=== PATIENT | male | born 2000 | race Caucasian/White ===

== ENCOUNTER 2024-06-25 16:00 | Emergency (ER) | payer BC, SELFPAY ==
[2024-06-25 16:14] VITALS: BP 139/91; PULSE 102; RESP 18; TEMP 36.2; O2SAT 98; BMI 25.8
--- NOTE | 2024-06-25 16:37 | ED.GENADULT ---
HPI - General Adult General Date Seen: 06/25/24 Chief complaint: Cough Stated complaint: covid testing Time Seen by Provider: 06/25/24 16:00 Source: patient Mode of arrival: ambulatory Limitations: no limitations History of Present Illness HPI narrative: Patient is a 24-year-old male presenting to the emergency department for concern for COVID. States his significant other recently tested positive for COVID. He took it COVID test that was inconclusive he states. At home he has been having headaches and body aches. Is not having any chest pains or shortness of breath. Has some mild weakness but denies vision changes or numbness. And is not having any abdominal pain, diarrhea, constipation, dysuria, nausea or vomiting. No other concerns noted at this time Related Data Home Medications ?Medication ?Instructions ?Recorded ?Confirmed No Known Home Medications 06/25/24 06/25/24 Allergies Allergy/AdvReac Type Severity Reaction Status Date / Time No Known Drug Allergies Allergy Verified 06/25/24 16:16 Review of Systems Status of ROS: Reports: 10 or more systems reviewed and unremarkable except as noted in History and below PFSH PFS Social History Smoking Status: Never smoker Do you use any of these nicotine containing products: None How often do you have a drink containing alcohol: never AUDIT-C Alcohol total score: 0 service: No Exam Narrative: Exam Narrative: Const: Well-nourished, Well-developed, in no distress Eyes: PERRL, no conjunctival injection, and symmetrical lids HENT: Atraumatic external nose and ears. Moist mucous membranes. Neck: Symmetric, trachea midline, No thyromegaly. CVS: RRR, No murmurs or gallops. Peripheral pulses 2+ and equal in all extremities RESP: Unlabored respiratory effort. Clear to auscultation bilaterally. GI: Nontender/Nondistended, No rebound or guarding. MSK:Extremities w/o deformity, Normal Active ROM Skin: Warm, Dry. No rashes or lesions. Neuro: Normal Muscle tone, No focal neurological deficits. Psych: Awake, Alert, & Oriented x3. Appropriate mood and affect. Const: Vital Signs, click to edit/add: Vital Signs - 24 hr 06/25/24 16:14 Temperature 97.2 F L Pulse Rate [Pulse Oximeter] 102 H Respiratory Rate 18 Blood Pressure [Le ft Upper Arm] 139/91 H Pulse Oximetry 98 Oxygen Delivery Me thod Room Air Course Vital Signs Vital signs: Initial Vital Signs Temperature 97.2 F L 06/25/24 16:14 Temperature Source Temporal Artery Scan 06/25/24 16:14 Pulse Rate 102 H 06/25/24 16:14 Pulse Rhythm Regular 06/25/24 16:14 Respiratory Rate 18 06/25/24 16:14 Blood Pressure 139/91 H 06/25/24 16:14 Blood Pressure Mean 107 H 06/25/24 16:14 Blood Pressure Position Sitting 06/25/24 16:14 Pulse Oximetry 98 06/25/24 16:14 Oxygen Delivery Method Room Air 06/25/24 16:14 Vital Signs Temperature 97.2 F L 06/25/24 16:14 Pulse Rate 102 H 06/25/24 16:14 Respiratory Rate 18 06/25/24 16:14 Blood Pressure 139/91 H 06/25/24 16:14 Pulse Oximetry 98 06/25/24 16:14 Oxygen Delivery Method Room Air 06/25/24 16:14 Temperature 97.2 F L 06/25/24 16:14 Pulse Rate 102 H 06/25/24 16:14 Respiratory Rate 18 06/25/24 16:14 Blood Pressure 139/91 H 06/25/24 16:14 Pulse Oximetry 98 06/25/24 16:14 Oxygen Delivery Method Room Air 06/25/24 16:14 Medical Decision Making MDM Narrative Medical decision making narrative: Patient is a 24-year-old male presenting to the emergency department for concerns for COVID. He is otherwise doing well a not believe lab work or imaging is necessary at this time. Will do a COVID/flu/RSV test. Testing was negative any likely has some other viral syndrome. He will be discharged. He is agreeable with this plan Lab Data Labs: Lab Results 06/25/24 Range/Units 16:07 SARS-CoV-2 (PCR) Negative SARS-CoV-2 (Negative) Influenza Type A (PCR) Negative PCR FLU A (Negative) Influenza Type B (PCR) Negative PCR FLU B (Negative) RSV (PCR) Negative PCR RSV (Negative) Discharge Plan Discharge Clinical Impression: Acute viral syndrome Patient Disposition: Home, Self-Care Condition: Stable Instructions: Viral Syndrome (ED) Additional Instructions: Make sure stay well hydrated. Symptoms should start improving over the next week. Return for new or worsening symptoms Prescriptions: No Action No Known Home Medications Follow Up/Referrals: Provider,Not a Local [Primary Care Provider] - Stand Alone Forms: [employer] Info Instructions
[2024-06-25 17:08] LABS: PCR FLU A Negative PCR FLU A (Negative); PCR FLU B Negative PCR FLU B (Negative); PCR RSV Negative PCR RSV (Negative); SARS PCR* Negative SARS-CoV-2 (Negative)
== END 2024-06-25 17:33 | disposition home or self-care (01) ==
PROVIDERS: Emergency Provider Student in an Organized Health Care Education/Training Program
DX: B34.9 Viral infection, unspecified (principal)
CPT/HCPCS: 87631; 99282; 99283

== ENCOUNTER 2024-09-16 15:41 | Emergency (ER) | payer BC, SELFPAY ==
[2024-09-16 15:51] VITALS: BP 150/77; PULSE 74; RESP 16; TEMP 37.1; O2SAT 97; BMI 25.8
[2024-09-16 16:34] LABS: Strep A DNA Probe* NOT DETECTED (Not Detectd)
[2024-09-16 16:47] LABS: PCR FLU A Negative PCR FLU A (Negative); PCR FLU B Negative PCR FLU B (Negative); PCR RSV Negative PCR RSV (Negative); SARS PCR* Negative SARS-CoV-2 (Negative)
--- NOTE | 2024-09-16 16:51 | ED.GENADULT ---
HPI - General Adult General Time Seen by Provider: 16:51 Date Seen: 09/16/24 Chief complaint: Sore Throat Stated complaint: sore throat - difficulty swallowing Time Seen by Provider: 09/16/24 16:21 Source: patient, family, RN notes reviewed and old records reviewed Mode of arrival: ambulatory Limitations: no limitations History of Present Illness HPI narrative: John is a 24-year-old male who reports a past history of mono complicated by tonsillitis requiring antibiotics who comes to the emergency room today for a sore throat that he awoke with this morning. No contacts to his knowledge. He describes this sore throat throat that started today but there is no fever, significant cough, ear pain, runny nose. Lenora tells me that in the past he was diagnosed with a negative strep positive mono at urgent care and they just ?sent him on his way?. Four days later he was hospitalize with a very high fever and pus coming from his tonsils. He does not feel like he was treated well in that case and thus did not go to urgent care today. Primarily doctors at the [facility]. His significant other is with him in is very loving and supportive. He works at [employer]. No vomiting. Related Data Home Medications ?Medication ?Instructions ?Recorded ?Confirmed No Known Home Medications 06/25/24 06/25/24 Allergies Allergy/AdvReac Type Severity Reaction Status Date / Time No Known Drug Allergies Allergy Verified 06/25/24 16:16 Review of Systems Status of ROS: Reports: 6 or more systems reviewed and unremarkable except as noted in History and below Const: Denies: fever ENMT: Reports: throat pain; Denies: neck pain, throat swelling or nasal congestion Resp: Denies: wheezing GI: Denies: abdominal pain Musculo: Denies: neck pain Allergy/Immuno: Denies: throat swelling or wheezing PFSH PFSH Social History Smoking Status: Never smoker Do you use any of these nicotine containing products: None How often do you have a drink containing alcohol: never AUDIT-C Alcohol total score: 0 Non-prescribed substance use: denies use service: No Exam Narrative: Exam Narrative: Alert and oriented. Nontoxic in appearance. Eyes are clear. Oral cavity with moist mucous membranes. Tonsils visualized there is no exudate or erythema. No anterior cervical lymphadenopathy. Neck is supple. Left TM with only a small part visualize which is non erythematous. There is a large amount of cerumen deep within the ear canal. Right TM within normal limits. Heart with regular rate and rhythm and lungs are clear in all lung acharya. He is able to move all of his extremities. Const: Vital Signs, click to edit/add: Vital Signs - 24 hr 09/16/24 15:51 Temperature 98.7 F Pulse Rate [Pulse Oximeter] 74 Respiratory Rate 16 Blood Pressure [Ri ght Upper Arm] 150/77 H Pulse Oximetry 97 Oxygen Delivery Me thod Room Air Documenting provider has reviewed patient's vital signs: yes Course Course ED Course: Differential diagnosis includes but is not limited to viral pharyngitis, early COVID, pneumonia, influenza, RSV, strep, peritonsillar abscess. At this time based on exam there is no evidence of a peritonsillar abscess or tonsillitis at this time. Prior to seeing patient he did test negative for strep, COVID, influenza, RSV. John did have COVID but not within the last couple years. Does not get immunizations per his report. We did speak briefly about antiviral if you would be COVID positive but he does not really have any risk factors and denies asthma, tobacco use, other health issues. Vital Signs Vital signs: Initial Vital Signs Temperature 98.7 F 09/16/24 15:51 Temperature Source Temporal Artery Scan 09/16/24 15:51 Pulse Rate 74 09/16/24 15:51 Respiratory Rate 16 09/16/24 15:51 Blood Pressure 150/77 H 09/16/24 15:51 Blood Pressure Mean 101 09/16/24 15:51 Blood Pressure Position Sitting 09/16/24 15:51 Pulse Oximetry 97 09/16/24 15:51 Oxygen Delivery Method Room Air 09/16/24 15:51 Vital Signs Temperature 98.7 F 09/16/24 15:51 Pulse Rate 74 09/16/24 15:51 Respiratory Rate 16 09/16/24 15:51 Blood Pressure 150/77 H 09/16/24 15:51 Pulse Oximetry 97 09/16/24 15:51 Oxygen Delivery Method Room Air 09/16/24 15:51 Temperature 98.7 F 09/16/24 15:51 Pulse Rate 74 09/16/24 15:51 Respiratory Rate 16 09/16/24 15:51 Blood Pressure 150/77 H 09/16/24 15:51 Pulse Oximetry 97 09/16/24 15:51 Oxygen Delivery Method Room Air 09/16/24 15:51 Medical Decision Making MDM Narrative Medical decision making narrative: 1. A viral pharyngitis-I did speak to John about mono being less of a possibility given the fact that he had mono recently. He should have protective antibodies. I do admit that there are other forms of model such as CMV but certainly his appearance today is very reassuring. This may also represent early COVID and so I do suggest retesting in the next few days if he has worsening symptoms. No evidence of strep. I recommend ibuprofen or Tylenol as needed for discomfort. Suggest following up with clinic if symptoms continue. Of course return to the ER for worsening symptoms that compromise breathing, eating, if he is vomiting. His significant other asked what she should be looking for and I did describe asymmetry in the oropharynx, vomiting, difficulty breathing. 2. Disposition-home at this time. John requested a note as he left work early today to come to the emergency room this was provided to him. Lab Data Lab results reviewed: Yes I reviewed the patient's lab results Labs: Lab Results 09/16/24 Range/Units 15:55 SARS-CoV-2 (PCR) Negative SARS-CoV-2 (Negative) Influenza Type A (PCR) Negative PCR FLU A (Negative) Influenza Type B (PCR) Negative PCR FLU B (Negative) RSV (PCR) Negative PCR RSV (Negative) Group A Strep DNA NOT DETECTED (Not Detectd) Discharge Plan Discharge Clinical Impression: Pharyngitis, Excessive cerumen in left ear canal Additional Instructions: Suggest ibuprofen or Tylenol as needed for discomfort. Consider retesting for COVID if you have worsening symptoms. At this time based on your exam and lab results I would not use an antibiotic. If you have worsening symptoms please follow-up with your primary care clinic. If you are having difficulty breathing, persistent vomiting, please return to the emergency room for further evaluation. Consider the use of Debrox for softening of the wax in your left ear. Gentle irrigation could be tried. Not fleming this process and harm the ear canal. Return as needed. Prescriptions: No Action No Known Home Medications Follow Up/Referrals: Provider,Not a Local [Primary Care Provider] - Stand Alone Forms: [facility] Info Instructions
== END 2024-09-16 17:18 | disposition home or self-care (01) ==
LOC: ED 17:12
PROVIDERS: Emergency Provider Family Medicine
DX: J02.9 Acute pharyngitis, unspecified (principal); H61.22 Impacted cerumen, left ear
CPT/HCPCS: 87631; 87651; 99282; 99283